=== PATIENT | female | born 1975 | race Caucasian/White ===

== ENCOUNTER 2021-03-29 21:32 | Emergency (ER) | payer SELFPAY ==
[~2021-03-29] VITALS: Ht 170.2 cm; Wt 63.5 kg
[~2021-03-29 21:32] MED LIST: B/P MED; LEVSOD100 PO; LEVSOD75; METCAR500 PO; ORTHOTRYCYCLINE; SPIR50 PO; VITNEPH PO; YAZ PO
[2021-03-30] MEDS ORDERED: EPIPEN0.3 MG/0.3 IM (00:10)
[2021-03-30] MEDS ORDERED: DELTASONE20 MG PO (00:12)
== END 2021-03-30 01:04 | disposition home or self-care (01) ==
LOC: ER 21:32
DX: T78.2XXA Anaphylactic shock, unspecified, initial encounter (principal); I10 Essential (primary) hypertension; E03.9 Hypothyroidism, unspecified; Z88.0 Allergy status to penicillin; Z88.8 Allergy status to other drugs, medicaments and biological substances; Z79.899 Other long term (current) drug therapy
CPT/HCPCS: 96372; 96374; 99283-25; J0171; J2930